=== PATIENT | male | born 1940 | race Caucasian/White ===

== ENCOUNTER 2022-08-07 12:27 | Outpatient (CLI) | payer MEDICARE, BC, SELFPAY ==
--- NOTE | ~2022-08-07 | PE_ITS ---
EXAMINATION: PET_PETPSMAST_PT DATE: 08/07/2022 15:37 INDICATION: Prostate cancer. TECHNIQUE: 8.996 mCi of piflufolastat F-18 was administered intravenously. Low dose computed tomograp hy (CT) images were acquired from the base of the brain to the proximal thighs for attenuation correc tion and anatomic localization. Automated exposure control was employed. Dose-length product (DLP) wa s 537 mGy-cm. Positron emission tomography (PET) images were acquired in the same distribution. COMPARISON: None FINDINGS: Head/neck: Left submandibular gland is absent. There are no pathologically enlarged lymph nodes. Chest: There is mild atelectasis bilaterally. A calcified right lung nodule and calcified right hilar and mediastinal lymph nodes are consistent with old granulomatous disease. No pleural effusion. Card iomegaly is noted. There are coronary artery calcifications. There are calcifications aortic valve. N o pericardial effusion. There are surgical changes of right humeral head. Abdomen/pelvis/proximal thighs: The liver, spleen, gallbladder, pancreas, and adrenal glands are norm al. There are cysts in the kidneys including peripelvic cysts measuring up to 2.7 cm on the left. The re is a 2.3 cm mass in right kidney measuring soft tissue attenuation. The prostate is mildly enlarge d with areas of increased activity with maximum SUV of 8.6, consistent with primary malignancy. There is diverticulosis of the colon without evidence of diverticulitis. There are changes of right hemico lectomy. There is fat stranding at the root of the small bowel mesentery, likely edema or mesenteric panniculitis. There is increased activity in bilateral internal and external iliac lymph nodes, bilat eral common iliac lymph nodes, and left para-aortic and aortocaval lymph nodes. Some of the nodes are enlarged. For example, a 14 x 12 mm left para-aortic lymph node demonstrates maximum SUV of 4.1. The re is no osseous malignancy. IMPRESSION: 1. Mildly enlarged prostate with increased activity, consistent with primary malignancy. 2. Pelvic and retroperitoneal lymphadenopathy with increased activity, consistent with metastatic dis ease. Reviewed, dictated and finalized at location A. ECT SUPERINTENDENT IMPRESSION: 1. Mildly enlarged prostate with increased activity, consistent with primary ma lignancy. 2. Pelvic and retroperitoneal lymphadenopathy with increased activity, consiste nt with metastatic disease.
== END 2022-08-07 12:28 | disposition home or self-care (01) ==
PROVIDERS: PCP Family Medicine; Visit Provider Urology
DX: C61 Malignant neoplasm of prostate (principal); R59.1 Generalized enlarged lymph nodes
CPT/HCPCS: 78815; A9595

== ENCOUNTER 2022-09-25 08:22 | Outpatient (CLI) | payer MEDICARE, BC, SELFPAY ==
--- NOTE | ~2022-09-25 | MR_ITS ---
EXAMINATION: MR pelvis wo/w con DATE: 09/25/2022 09:46 INDICATION: Malignant neoplasm of the prostate TECHNIQUE: Magnetic resonance imaging (MRI) of the pelvis was performed without and with 15 mL Multih ance intravenous contrast. Fullfield sequences of the pelvis included axial and coronal T2-weighted S S FSE, axial, sagittal and coronal 2D FIESTA, axial 2D FIESTA FS, axial SSFSE-IR JOSE, axial dual-echo T1-weighted FSPGR, axial and coronal T1 weighted LAVA, 3D axial T2 Cube, axial diffusion-weighted SE with apparent diffusion coefficient (ADC) maps. Postcontrast sequences included a time course axial T1-weighted LAVA and sagittal and coronal T1-weighted LAVA. COMPARISON: PSMA PET study dated 08/07/2022 FINDINGS: Prostatomegaly measuring 4.7 x 4.7 cm. There is a multilobulated collection of likely hydrogel situat ed between the prostate in the anterior margin of the rectum. The collection measures 5.0 cm in maxim al dimensions left to right, 2.5 cm in maximal AP dimensions and 3.5 cm maximal craniocaudal dimensio ns. The fluid collection stress primarily posterior to the cephalad half of the prostate. The collect ion situated between the inferior half of the prostate is smaller situated along the left side of the midline measuring approximately 8 mm left to right and 6 mm AP. There are a few mildly enlarged pelv ic lymph nodes including left external and iliac chain lymph nodes measuring up to 1.6 cm, a pair of left common iliac chain lymph nodes the larger measuring 1.4 cm maximal diameter as well as a couple situated immediately caudal to the bifurcation of the aorta and inferior vena cava measuring 1.2 cm e ach which corresponds to a focus of PSMA active on prior PET study consistent with metastatic disease . There are a few normal-sized obturator lymph nodes, none measuring greater than 5 mm in maximal alexandre rt axis diameter which also demonstrated despite foci of increased PSA may activity on prior PET stud y consistent with metastatic disease. Bladder is normal. Very small fat-containing left inguinal jigar ia. Visualized portion of the bowels are unremarkable. Normal bone marrow signal with no abnormally e nhancing bone lesions identified. IMPRESSION: 1. Prostatomegaly consistent with reported prostate cancer. 2. Likely hydrogel spacer between the prostate in the rectum which is positioned primarily posterior to the cephalad half of the prostate with smaller collection on the left side of the inferior half of the prostate. 3. A few enlarged lymph nodes in the pelvis along the left common and external iliac chains and a few normal-sized bilateral obturator lymph nodes all of which demonstrate increase PSMA uptake on prior PET study consistent with metastatic disease. Reviewed, dictated and finalized at location A. IMPRESSION: 1. Prostatomegaly consistent with reported prostate cancer. 2. Likely hydrogel spacer between the prostate in the rectum which is positione d primarily posterior to the cephalad half of the prostate with smaller collect ion on the left side of the inferior half of the prostate. 3. A few enlarged lymph nodes in the pelvis along the left common and external iliac chains and a few normal-sized bilateral obturator lymph nodes all of whic h demonstrate increase PSMA uptake on prior PET study consistent with metastati c disease.
== END 2022-09-25 08:23 | disposition home or self-care (01) ==
PROVIDERS: PCP Family Medicine; Visit Provider Radiology Radiation Oncology
DX: C61 Malignant neoplasm of prostate (principal); N40.0 Benign prostatic hyperplasia without lower urinary tract symptoms; R59.0 Localized enlarged lymph nodes
CPT/HCPCS: 72197; A9577